=== PATIENT | female | born 2005 | race Hispanic/Latino ===

== ENCOUNTER 2024-09-05 15:10 | Emergency (ER) | payer OTHER ==
[~2024-09-05] VITALS: Ht 167.6 cm; Wt 66.2 kg
[2024-09-05 15:37] LABS: BASO % 0.5 % (0.0-1.0); EOS # 0.1 10^3/uL (0.0-0.5); EOS % 0.8 % (0.0-3.0); HEMATOCRIT 36.9 % (36.0-47.0); HEMOGLOBIN 12.8 g/dl (12.0-15.5); LYMPH # 1.8 10^3/uL (1.5-5.0); MEAN CORPUSCULAR HEMOGLOBIN 30.2 pg (27.0-33.0); MEAN CORPUSCULAR HGB CONC 34.7 g/dl (32.0-36.5); MONO # 0.6 10^3/uL (0.0-0.8); MONO % 7.1 % (2.0-8.0); NEUTROPHILS % 70.4 % (36.0-66.0); PLATELET COUNT, AUTOMATED 244 10^3/uL (150-450); RED BLOOD COUNT 4.24 10^6/uL (4.00-5.40); WHITE BLOOD COUNT 8.5 10^3/uL (4.0-10.0)
[2024-09-05 16:03] LABS: HCG, SERUM QUANTITATIVE 168.4 MIU/ML (<4.2)
[2024-09-05 16:04] LABS: BLOOD UREA NITROGEN 13 MG/DL (9-23); CALCIUM LEVEL 9.3 MG/DL (8.5-10.1); CARBON DIOXIDE LEVEL 26 MMOL/L (20-31); CHLORIDE LEVEL 108 MMOL/L (98-107); GLOMERULAR FILTRATION RATE > 90.0 (>60); GLUCOSE, FASTING 89 MG/DL (60-100); POTASSIUM SERUM 3.8 MMOL/L (3.5-5.1); SODIUM LEVEL 142 MMOL/L (136-145)
[2024-09-05 23:24] VITALS: BP 118/68; TEMP 97.9; O2SAT 99
== END 2024-09-05 23:25 | disposition home or self-care (01) ==
LOC: M ED 15:10
DX: O03.9 Complete or unspecified spontaneous abortion without complication (principal); Z3A.00 Weeks of gestation of pregnancy not specified

== ENCOUNTER 2024-11-24 06:09 | Emergency (ER) | payer OTHER ==
[~2024-11-24] VITALS: Ht 167.6 cm; Wt 63.7 kg
[2024-11-24 08:04] LABS: BASO # 0.1 10^3/uL (0.0-0.2); BASO % 0.7 % (0.0-1.0); EOS # 0.2 10^3/uL (0.0-0.5); EOS % 2.2 % (0.0-3.0); LYMPH # 1.8 10^3/uL (1.5-5.0); LYMPH % 25.1 % (24.0-44.0); MONO # 0.6 10^3/uL (0.0-0.8); MONO % 8.1 % (2.0-8.0); NEUTROPHILS # 4.6 10^3/uL (1.5-8.5); NEUTROPHILS % 63.8 % (36.0-66.0); PLATELET COUNT, AUTOMATED 229 10^3/uL (150-450)
[2024-11-24 08:28] LABS: HCG, SERUM QUALITATIVE NEGATIVE (NEGATIVE)
[2024-11-24 08:31] LABS: ALT/SGPT 15 U/L (7.0-40); AST/SGOT 15 U/L (<34); CALCIUM LEVEL 9.2 MG/DL (8.5-10.1); CARBON DIOXIDE LEVEL 27 MMOL/L (20-31); CHLORIDE LEVEL 106 MMOL/L (98-107); CREATININE FOR GFR 0.91 MG/DL (0.55-1.30); GLOMERULAR FILTRATION RATE > 90.0 (>60); POTASSIUM SERUM 4.2 MMOL/L (3.5-5.1); SODIUM LEVEL 143 MMOL/L (136-145)
[2024-11-24 08:32] LABS: KETONE, URINE AUTO RFX NEGATIVE (NEGATIVE); LEUKOCYTE ESTERASE UR AUTO RFX NEGATIVE (NEGATIVE); MUCUS, URINE RFX MODERATE (NEGATIVE); NITRITE, URINE AUTO RFX NEGATIVE (NEGATIVE); RBC, URINE AUTO RFX 1 /HPF (0-3); SQUAM EPITHELIAL CELL UR AURFX 1 /HPF (0-6); WBC, URINE AUTO RFX 2 /HPF (0-3)
[2024-11-24] MEDS ORDERED: HOME MED LIST COMPLETE! XX SCH (08:35)
[2024-11-24 09:08] VITALS: BP 117/67; TEMP 98; O2SAT 100
== END 2024-11-24 09:18 | disposition home or self-care (01) ==
LOC: M ED 06:09
DX: N93.9 Abnormal uterine and vaginal bleeding, unspecified (principal)

== ENCOUNTER 2024-12-02 02:25 | Emergency (ER) | payer OTHER ==
[2024-12-02] MEDS: NS (Normal Saline) 0.9% 1,000 ML IV ONE (03:10)
[2024-12-02] MEDS: ONDANSETRON 4MG 2ML VIAL IV ONE (03:10)
[2024-12-02 03:23] LABS: BASO # 0.0 10^3/uL (0.0-0.2); BASO % 0.4 % (0.0-1.0); EOS # 0.0 10^3/uL (0.0-0.5); EOS % 0.1 % (0.0-3.0); LYMPH # 0.7 10^3/uL (1.5-5.0); LYMPH % 7.6 % (24.0-44.0); MONO # 0.3 10^3/uL (0.0-0.8); MONO % 3.3 % (2.0-8.0); NEUTROPHILS # 8.3 10^3/uL (1.5-8.5); NEUTROPHILS % 88.2 % (36.0-66.0); PLATELET COUNT, AUTOMATED 192 10^3/uL (150-450)
[2024-12-02 03:46] LABS: ETHYL ALCOHOL (ETHANOL) 0.107 % (0.000-0.010)
[2024-12-02 03:47] LABS: CPK CREATINE PHOSPHOKINASE 57 U/L (34-145)
[2024-12-02 03:48] LABS: SALICYLATE LEVEL < 3.0 MG/DL (<30)
[2024-12-02 03:50] LABS: AMPHETAMINES LEVEL URINE NEGATIVE (NEGATIVE); BARBITURATES URINE NEGATIVE (NEGATIVE); BENZODIAZEPINES URINE NEGATIVE (NEGATIVE); CANNABINOIDS URINE NEGATIVE (NEGATIVE); COCAINE METABOLITE URINE NEGATIVE (NEGATIVE); METHADONE URINE NEGATIVE (NEGATIVE); OPIATES URINE NEGATIVE (NEGATIVE); PHENCYCLIDINE URINE NEGATIVE (NEGATIVE)
[2024-12-02 03:59] LABS: ALT/SGPT < 9 U/L (7.0-40); AST/SGOT 12 U/L (<34); CALCIUM LEVEL 5.6 MG/DL (8.5-10.1); CARBON DIOXIDE LEVEL 18 MMOL/L (20-31); CHLORIDE LEVEL 118 MMOL/L (98-107); CREATININE FOR GFR 0.59 MG/DL (0.55-1.30); GLOMERULAR FILTRATION RATE > 90.0 (>60); POTASSIUM SERUM 2.9 MMOL/L (3.5-5.1); SODIUM LEVEL 148 MMOL/L (136-145)
[2024-12-02 04:10] LABS: HCG, SERUM QUALITATIVE NEGATIVE (NEGATIVE)
[2024-12-02 05:11] LABS: CALCIUM LEVEL 8.2 MG/DL (8.5-10.1); CARBON DIOXIDE LEVEL 22 MMOL/L (20-31); CHLORIDE LEVEL 112 MMOL/L (98-107); CREATININE FOR GFR 0.68 MG/DL (0.55-1.30); GLOMERULAR FILTRATION RATE > 90.0 (>60); POTASSIUM SERUM 3.9 MMOL/L (3.5-5.1); SODIUM LEVEL 146 MMOL/L (136-145)
[2024-12-02 07:30] VITALS: BP 114/70; TEMP 98.5; O2SAT 99
== END 2024-12-02 07:40 | disposition home or self-care (01) ==
LOC: M ED 02:25 → MERGE 02:25 → M ED 07:40
DX: F10.120 Alcohol abuse with intoxication, uncomplicated (principal); I45.10 Unspecified right bundle-branch block
CPT/HCPCS: 80048; 80076; 80143; 80307; 82077; 82550; 84443; 84703; 85025; 93005; 94760; 96361; 96374; 99284; J2405

== ENCOUNTER 2025-02-04 14:24 | Emergency (ER) | payer OTHER ==
[~2025-02-04] VITALS: Ht 167.6 cm; Wt 64.7 kg
[2025-02-04 16:32] LABS: BASO # 0.1 10^3/uL (0.0-0.2); BASO % 0.4 % (0.0-1.0); EOS # 0.1 10^3/uL (0.0-0.5); EOS % 0.9 % (0.0-3.0); LYMPH # 2.2 10^3/uL (1.5-5.0); LYMPH % 18.0 % (24.0-44.0); MONO # 0.8 10^3/uL (0.0-0.8); MONO % 6.8 % (2.0-8.0); NEUTROPHILS # 8.9 10^3/uL (1.5-8.5); NEUTROPHILS % 73.7 % (36.0-66.0); PLATELET COUNT, AUTOMATED 223 10^3/uL (150-450)
[2025-02-04 16:59] LABS: APPEARANCE, URINE HAZY (CLEAR); BACTERIA, URINE AUTO NEGATIVE (NEGATIVE); BILIRUBIN, URINE AUTO NEGATIVE (NEGATIVE); BLOOD, URINE BLOOD NEGATIVE (NEGATIVE); GLUCOSE, URINE (UA) AUTO NEGATIVE (NEGATIVE); KETONE, URINE AUTO TRACE mg/dL (NEGATIVE); LEUKOCYTE ESTERASE, URINE AUTO NEGATIVE (NEGATIVE); MUCUS, URINE MODERATE (NEGATIVE); NITRITE, URINE AUTO NEGATIVE (NEGATIVE); PROTEIN, URINE AUTO NEGATIVE (NEGATIVE); RBC, URINE AUTO 0 /HPF (0-3); SPECIFIC GRAVITY URINE AUTO 1.030 (1.002-1.035); SQUAMOUS EPITHELIAL CELL UR AU 5 /HPF (0-6); UROBILINOGEN, URINE AUTO 0.2 mg/dL (0.0-2.0); WBC, URINE AUTO 0 /HPF (0-3)
[2025-02-04 18:19] VITALS: BP 110/61; TEMP 98.1; O2SAT 100
== END 2025-02-04 18:59 | disposition left against medical advice (07) ==
LOC: M ED 14:24
DX: Z53.21 Procedure and treatment not carried out due to patient leaving prior to being seen by health care provider (principal)

== ENCOUNTER 2025-02-15 15:43 | Day surgery (SDC) | payer OTHER ==
[2025-02-14] MEDS: DOXYCYCLINE HYCLATE 100 MG/10 ML VIAL As Ordered ONE (23:13)
[~2025-02-15] VITALS: Ht 167.6 cm; Wt 62.8 kg
[2025-02-15 16:15] LABS: BASO # 0.0 10^3/uL (0.0-0.2); BASO % 0.2 % (0.0-1.0); EOS # 0.1 10^3/uL (0.0-0.5); EOS % 0.8 % (0.0-3.0); LYMPH # 1.7 10^3/uL (1.5-5.0); LYMPH % 19.0 % (24.0-44.0); MONO # 0.7 10^3/uL (0.0-0.8); MONO % 7.2 % (2.0-8.0); NEUTROPHILS # 6.6 10^3/uL (1.5-8.5); NEUTROPHILS % 72.5 % (36.0-66.0); PLATELET COUNT, AUTOMATED 216 10^3/uL (150-450)
[2025-02-15 16:40] LABS: CALCIUM LEVEL 9.2 MG/DL (8.5-10.1); CARBON DIOXIDE LEVEL 24 MMOL/L (20-31); CHLORIDE LEVEL 106 MMOL/L (98-107); CREATININE FOR GFR 0.72 MG/DL (0.55-1.30); GLOMERULAR FILTRATION RATE > 90.0 (>60); POTASSIUM SERUM 4.2 MMOL/L (3.5-5.1); SODIUM LEVEL 139 MMOL/L (136-145)
[2025-02-15] MEDS ORDERED: KETOROLAC 30 MG/ML 1 ML VIAL As Ordered ONE (22:10)
[2025-02-15] MEDS ORDERED: LIDOCAINE 2% 100 MG/5 ML SDV (FOR ANES.) As Ordered ONE (22:10)
[2025-02-15] MEDS ORDERED: dexAMETHasone 4 MG/ML 1 ML VIAL As Ordered ONE (22:10)
[2025-02-15] MEDS ORDERED: ONDANSETRON 4MG/2ML VIAL As Ordered ONE (22:10)
[2025-02-15] MEDS ORDERED: MIDAZOLAM INJ 2 MG/2 ML VIAL As Ordered ONE (22:11)
[2025-02-15] MEDS ORDERED: HYDROMORPHONE HCL 0.5 MG/0.5 ML SYRINGE IV PRN (23:00)
[2025-02-15] MEDS ORDERED: MORPHINE 4 MG/ML 1 ML VIAL IV PRN (23:00)
[2025-02-15 23:13] LABS: FREE T4 1.57 NG/DL (0.83-1.43)
[2025-02-15] MEDS: LIDOCAINE 1% SDV 30 ML VIAL As Ordered ONE (23:21)
[2025-02-15] MEDS: TRANEXAMIC ACID 100 MG/ML 10ML VIAL As Ordered ONE (23:25)
[2025-02-15] MEDS ORDERED: ONDANSETRON 4MG TAB PO PRN (23:55)
[2025-02-16] VITALS (9 sets, daily range): BP systolic 92–123; BP diastolic 50–73; TEMP 97.4–98.8; O2SAT 96–100
[2025-02-16] MEDS ORDERED: UNRESOLVED CLARIFICATION ENTRY XX SCH (00:01)
[2025-02-16] MEDS: NS (Normal Saline) 0.9% 1,000 ML IV SCH (00:35)
[2025-02-16] MEDS ORDERED: IBUPROFEN 600 MG TAB PO PRN (00:50)
[2025-02-16] MEDS: ACETAMINOPHEN 500 MG TAB PO PRN (05:37)
[2025-02-16 10:59] LABS: PLATELET COUNT, AUTOMATED 175 10^3/uL (150-450)
[2025-02-16 11:15] LABS: INR 1.11
[2025-02-16] MEDS ORDERED: IBUP600T42 PO (14:02)
== END 2025-02-16 14:20 | disposition home or self-care (01) ==
LOC: M ED 15:43 → M SDC 22:25 → UNDOADMOB 22:26 → M RR INP 22:26 → M PED 02-16 00:20 → UNDODISOB 02-16 14:20 → M SDC 02-16 14:20
PROVIDERS: ATTEND Advanced Practice Midwife
DX: O01.0 Classical hydatidiform mole (principal)
CPT/HCPCS: 36415; 59870; 71045; 76801; 76857; 80048; 84439; 84443; 84702; 85025; 85027; 85384; 85610; 86850; 86900; 86901; 86920; 88305; 99284; J1100; J1271; J2250; J2405; J3010; S0191

== ENCOUNTER → 2025-02-18 | Outpatient (REF) | payer OTHER ==
[~2025-02-18] MED LIST: IBUP600T42 PO
== END ==
LOC: M PLALAB 15:11
PROVIDERS: ATTEND Student in an Organized Health Care Education/Training Program
DX: O02.0 Blighted ovum and nonhydatidiform mole (principal)

== ENCOUNTER → 2025-02-18 | Outpatient (CLI) | payer OTHER ==
[2025-02-18 18:14] LABS: PLATELET COUNT, AUTOMATED 202 10^3/uL (150-450)
== END ==
LOC: M PLALAB 14:25
PROVIDERS: ATTEND Student in an Organized Health Care Education/Training Program
DX: O02.0 Blighted ovum and nonhydatidiform mole (principal)

== ENCOUNTER → 2025-03-05 | Outpatient (REF) | payer OTHER | LOC: M PLALAB 14:54 | PROVIDERS: ATTEND Student in an Organized Health Care Education/Training Program | DX: O02.0 Blighted ovum and nonhydatidiform mole (principal) ==

== ENCOUNTER → 2025-04-01 | Outpatient (CLI) | payer OTHER ==
[~2025-04-01] MED LIST changes: +ONDA4INJ4 IV
[2025-04-01 17:02] LABS: PLATELET COUNT, AUTOMATED 281 10^3/uL (150-450)
== END ==
LOC: M PLALAB 16:14
PROVIDERS: ATTEND Student in an Organized Health Care Education/Training Program
DX: O02.0 Blighted ovum and nonhydatidiform mole (principal)

== ENCOUNTER 2025-04-03 11:48 | Observation (INO) | payer OTHER ==
[2025-04-03] VITALS (7 sets, daily range): BP systolic 101–118; BP diastolic 53–61; TEMP 97.9–99.6; O2SAT 100
[~2025-04-03] VITALS: Ht 167.6 cm; Wt 63.4 kg
[~2025-04-03 11:48] MED LIST changes: -ONDA4INJ4 IV
[2025-04-03] MEDS: NS (Normal Saline) 0.9% 1,000 ML IV ONE (12:21)
[2025-04-03 12:27] LABS: BASO # 0.0 10^3/uL (0.0-0.2); BASO % 0.4 % (0.0-1.0); EOS # 0.1 10^3/uL (0.0-0.5); EOS % 0.9 % (0.0-3.0); LYMPH # 1.8 10^3/uL (1.5-5.0); LYMPH % 24.4 % (24.0-44.0); MONO # 0.5 10^3/uL (0.0-0.8); MONO % 6.8 % (2.0-8.0); NEUTROPHILS # 5.1 10^3/uL (1.5-8.5); NEUTROPHILS % 67.2 % (36.0-66.0); PLATELET COUNT, AUTOMATED 297 10^3/uL (150-450)
[2025-04-03 12:59] LABS: CALCIUM LEVEL 8.6 MG/DL (8.5-10.1); CARBON DIOXIDE LEVEL 22 MMOL/L (20-31); CHLORIDE LEVEL 106 MMOL/L (98-107); CREATININE FOR GFR 0.78 MG/DL (0.55-1.30); GLOMERULAR FILTRATION RATE > 90.0 (>60); POTASSIUM SERUM 3.7 MMOL/L (3.5-5.1); SODIUM LEVEL 139 MMOL/L (136-145)
[2025-04-03] MEDS ORDERED: HOME MED LIST COMPLETE! XX SCH (17:35)
[2025-04-03] MEDS ORDERED: ONDANSETRON 4MG/2ML VIAL IV PRN (17:45)
[2025-04-03] MEDS: LR 1,000 ML IV SCH (18:33)
[2025-04-03] MEDS: DOCUSATE SODIUM 100 MG CAPSULE PO SCH (21:03)
[2025-04-03] MEDS: IBUPROFEN 800 MG TAB PO SCH (21:03)
[2025-04-03 22:29] LABS: PLATELET COUNT, AUTOMATED 225 10^3/uL (150-450)
[2025-04-04] VITALS (13 sets, daily range): BP systolic 88–103; BP diastolic 41–60; TEMP 98.4–99.7; O2SAT 98–100
[2025-04-04] MEDS: ACETAMINOPHEN 500 MG TAB PO ONE (00:09)
[2025-04-04 09:35] LABS: PLATELET COUNT, AUTOMATED 200 10^3/uL (150-450)
[2025-04-04] MEDS ORDERED: ONDA4INJ4 IV (16:43)
[2025-05-10] MEDS ORDERED: AMOX875T PO (15:20)
== END 2025-04-04 17:13 | disposition home or self-care (01) ==
LOC: M ED 11:48 → M ED INP 11:49 → M OBS 20:25
PROVIDERS: ADMIT Obstetrics & Gynecology; ATTEND Obstetrics & Gynecology
DX: O08.89 Other complications following an ectopic and molar pregnancy (principal); C54.8 Malignant neoplasm of overlapping sites of corpus uteri; D50.9 Iron deficiency anemia, unspecified; R58 Hemorrhage, not elsewhere classified; R53.83 Other fatigue; R42 Dizziness and giddiness; Z87.59 Personal history of other complications of pregnancy, childbirth and the puerperium; N83.201 Unspecified ovarian cyst, right side
CPT/HCPCS: 36415; 36430; 70470; 71260; 74177; 76801; 76817; 80048; 84702; 85025; 85027; 86850; 86900; 86901; 86920; 93976; 96360; 96361; 99285; P9016